=== PATIENT | male | born 1985 | race African-American/Black ===

== ENCOUNTER 2022-07-10 17:00 | Emergency (ER) | payer OTHER ==
[~2022-07-10] VITALS: Ht 180.3 cm; Wt 99.3 kg
[2022-07-10 18:45] VITALS: BP 144/81
[2022-07-10] MEDS ORDERED: KETOROLAC 30MG VIAL (30MG/ML) ONE (18:49)
[2022-07-10] MEDS ORDERED: NAPR-1192 PO (18:58)
[2022-07-10] MEDS ORDERED: KETOROLAC 30MG VIAL (30MG/ML) IM ONE (19:00)
== END 2022-07-10 19:11 | disposition home or self-care (01) ==
LOC: EDH 17:00
DX: R07.89 Other chest pain (principal); Z88.8 Allergy status to other drugs, medicaments and biological substances; W06.XXXA Fall from bed, initial encounter; Y93.89 Activity, other specified; Y92.89 Other specified places as the place of occurrence of the external cause; Y99.8 Other external cause status
CPT/HCPCS: 99283; 71045; 96372; J1885